=== PATIENT | male | born 1980 | race Caucasian/White ===

== ENCOUNTER 2016-11-30 12:03 | Emergency (ER) | payer MEDICAID ==
[2016-11-30] MEDS ORDERED: Sodium Chloride 0.9% 1,000 ML IV ONE (12:40)
--- NOTE | 2016-11-30 12:49 | ED Physician Chart ---
Chief Complaint/HPI - Patient Information Date Seen:: 11/30/16 Time Seen:: 12:41 Chief Complaint:: leg cramps History of Present Illness:: pt c/o severe leg cramps x >1week. cramps initially in distal rt leg then moved more proximal then moved over to rt thigh. 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 no redness. no chills. no sob. pt says pains are severe he was put on minocycline 1.5 wk ago for ??uti/ ??std ???story unclear. pt later says he has been off this med x 5 days. was given a med for pain for uti but ran out and cant recall name. denies other pain med hx recently nor other dr visits lately. took 1 of moms muscle relaxer tabs this am. (cant recall name)...no relief. also mom says he took K+ which wasnt helping. pt denies taking this initially...then changed answer and says he has been taking k+ ..... pt has a notable rash of small spots all over body which look like 1cm plaques or perhaps skin pop scars. no antecubital tracks. he says they are from freq injuries from work. Pt denies drug hx. pdmp shows large narc hx in past (ie many prior addresses) and lrg rx's x 3 last year but none for last 3 months.. Allergies:: Allergies Allergy/AdvReac Type Severity Reaction Status Date / Time banana Allergy Verified 11/30/16 12:13 sunflower seed Allergy Verified 11/30/16 12:14 beer Allergy Uncoded 11/30/16 12:12 minocycline Allergy Uncoded 11/30/16 12:22 oat Allergy Uncoded 11/30/16 12:13 Vitals:: Vital Signs - 8 hr 11/30/16 12:15 Temp 98 F HR 117 RR 20 BP 138/77 O2 Sat % 99 Historian:: Patient Review of Systems - Review of Systems General/Constitutional: No fever, No chills, No weight loss, No weakness, No diaphoresis, No edema, No loss of appetite Skin: Skin lesions, No rash, No bruising Head: No headache, No light-headedness Eyes: No loss of vision, No pain, No diplopia ENT: No earache, No nasal drainage, No sore throat, No tinnitus Neck: No neck pain, No swelling, No thyromegaly, No stiffness, No mass noted Cardio Vascular: No chest pain, No palpitations, No PND, No orthopnea, No edema Pulmonary: No SOB, No cough, No sputum, No wheezing GI: No nausea, No vomiting, No diarrhea, No pain, No melena, No hematochezia, No constipation, No hematemesis G/U: No dysuria, No frequency, No hematuria Musculoskeletal: No bone or joint pain, No back pain, Muscle pain Endocrine: No polyuria, No polydipsia Psychiatric: No prior psych history, No depression, No anxiety, No suicidal ideation Hematopoietic: No bruising, No lymphadenopathy Allergic/Immuno: No urticaria, No angioedema Neurological: No syncope, No focal symptoms, No weakness, No paresthesia, No headache, No seizure, No dizziness, No confusion, No vertigo Past Medical History - Past Medical History Past Medical History: Asthma/COPD Social History: Smoker, Alcohol, Illicit Drug Use (mj) Medication: Reviewed Family Medical History - Family Member Mother Ethnicity: Non- Living Status: Still Living Hx Family Cancer: No Hx Family Coronary Artery Disease: No Hx Family Congestive Heart Failure: No Hx Family Hypertension: No Hx Family Stroke: No Hx Family Diabetes: Yes Hx Family Seizures: No Hx Family Dementia: No Hx Family AIDS: No Hx Family HIV: No Hx Family COPD: No Hx Family Hepatitis: No Hx Family Psychiatric Problems: No Hx Family Tuberculosis: No Father History Unknown: Yes Ethnicity: Non- Living Status: Still Living Hx Family Cancer: No Hx Family Coronary Artery Disease: No Hx Family Congestive Heart Failure: No Hx Family Hypertension: No Hx Family Stroke: No Hx Family Diabetes: Yes Hx Family Seizures: No Hx Family Dementia: No Hx Family AIDS: No Hx Family HIV: No Hx Family COPD: No Hx Family Hepatitis: No Hx Family Psychiatric Problems: No Hx Family Tuberculosis: No Physical Exam - Physical Examination General/Constitutional: Awake, Well-developed, well-nourished, Alert, No distress, GCS 15, Non-toxic appearing, Ambulatory Head: Atraumatic Eyes: Lids, conjuctiva normal, PERRL, EOMI Skin: Nl inspection, No rash, No ecchymosis, Well hydrated, No lymphadenopathy Other Skin comments:: pt has a notable rash of small spots all over body which look like 1cm plaques or perhaps skin pop scars. he says they are from freq injuries from work. ENMT: External ears, nose nl, Nasal exam nl, Lips, teeth, gums nl Neck: Nontender, Full ROM w/o pain, No JVD, No nuchal rigidity, No bruit, No mass, No stridor Respiratory: Nl effort/Exclusion, Clear to Auscultation, No Wheeze/Rhonchi/Rales Cardio Vascular: RRR, No murmur, gallop, rubs, NL S1 S2 GI: No tenderness/rebounding/guarding, No organomegaly, No hernia, Normal BS's, Nondistended, No mass/bruits, No McBurney tenderness : No CVA tenderness Extremities: No tenderness or effusion, Full ROM, normal strength in all extremities, No edema, Normal digits & nails Other Extremities comments:: nrml extr. no edema. no homans sx. some diffuse mild tndrness. mild joint effusion rt knee but not red nor hot nor immobile. . no redness. no unusual warmth, no fever. Neuro/Psych: Alert/oriented, DTR's symmetric, Normal sensory exam, Normal motor strength, Judgement/insight normal, Mood normal, Normal gait, No focal deficits Misc: normal gait, Normal back, No paraspinal tenderness Labs/Radiology/EKG Results - Lab Results Results: Laboratory Tests 11/30/16 11/30/16 11/30/16 13:20 13:20 13:20 WBC RBC Hgb Hct MCV MCH MCHC Differential RDW Plt Count MPV Neutrophils % Lymphocytes % Monocytes % Eosinophils % Basophils % ESR 57 H D-Dimer Sodium Potassium Chloride Carbon Dioxide Anion Gap BUN Creatinine Est GFR ( Amer) Est GFR (Non-Af Amer) BUN/Creatinine Ratio Glucose Whole Bld Lactic Acid Uric Acid 5.0 Calcium Creatine Kinase Troponin I Urine Source Urine Color Urine Clarity Urine pH Ur Specific [place] Urine Protein Urine Glucose (UA) Urine Ketones Urine Blood Urine Nitrate Urine Bilirubin Urine Urobilinogen Ur Leukocyte Esterase Urine RBC Urine WBC Ur Epithelial Cells Urine Bacteria Urine Mucus Urine Opiates Screen Ur Barbiturates Screen Ur Phencyclidine Scrn Amphetamines Screen U Methamphetamines Scrn U Benzodiazepines Scrn U Cocaine Metab Screen U Cannabinoids Screen HIV 1&2 Antibody Screen NEGATIVE 11/30/16 11/30/16 11/30/16 13:25 13:25 13:25 WBC 13.9 H RBC 4.72 Hgb 13.1 L Hct 39.8 MCV 84.3 MCH 27.8 MCHC Differential 32.9 RDW 12.3 Plt Count 461 H MPV 7.0 Neutrophils % 68.0 Lymphocytes % 19.9 L Monocytes % 8.6 Eosinophils % 3.0 Basophils % 0.5 ESR D-Dimer > 5000 H Sodium 132 L Potassium 3.9 Chloride 97 L Carbon Dioxide 27.3 Anion Gap 11.6 BUN 17 Creatinine 1.0 Est GFR ( Amer) > 60.0 Est GFR (Non-Af Amer) > 60.0 BUN/Creatinine Ratio 17.0 Glucose 106 H Whole Bld Lactic Acid 0.85 Uric Acid Calcium 9.4 Creatine Kinase Troponin I Urine Source Urine Color Urine Clarity Urine pH Ur Specific [place] Urine Protein Urine Glucose (UA) Urine Ketones Urine Blood Urine Nitrate Urine Bilirubin Urine Urobilinogen Ur Leukocyte Esterase Urine RBC Urine WBC Ur Epithelial Cells Urine Bacteria Urine Mucus Urine Opiates Screen Ur Barbiturates Screen Ur Phencyclidine Scrn Amphetamines Screen U Methamphetamines Scrn U Benzodiazepines Scrn U Cocaine Metab Screen U Cannabinoids Screen HIV 1&2 Antibody Screen 11/30/16 11/30/16 11/30/16 13:25 13:25 14:35 WBC RBC Hgb Hct MCV MCH MCHC Differential RDW Plt Count MPV Neutrophils % Lymphocytes % Monocytes % Eosinophils % Basophils % ESR D-Dimer Sodium Potassium Chloride Carbon Dioxide Anion Gap BUN Creatinine Est GFR ( Amer) Est GFR (Non-Af Amer) BUN/Creatinine Ratio Glucose Whole Bld Lactic Acid Uric Acid Calcium Creatine Kinase 53 Troponin I 0.02 Urine Source Urine Color Urine Clarity Urine pH Ur Specific [place] Urine Protein Urine Glucose (UA) Urine Ketones Urine Blood Urine Nitrate Urine Bilirubin Urine Urobilinogen Ur Leukocyte Esterase Urine RBC Urine WBC Ur Epithelial Cells Urine Bacteria Urine Mucus Urine Opiates Screen NEGATIVE Ur Barbiturates Screen NEGATIVE Ur Phencyclidine Scrn NEGATIVE Amphetamines Screen POSITIVE H U Methamphetamines Scrn POSITIVE H U Benzodiazepines Scrn NEGATIVE U Cocaine Metab Screen NEGATIVE U Cannabinoids Screen POSITIVE H HIV 1&2 Antibody Screen 11/30/16 14:35 WBC RBC Hgb Hct MCV MCH MCHC Differential RDW Plt Count MPV Neutrophils % Lymphocytes % Monocytes % Eosinophils % Basophils % ESR D-Dimer Sodium Potassium Chloride Carbon Dioxide Anion Gap BUN Creatinine Est GFR ( Amer) Est GFR (Non-Af Amer) BUN/Creatinine Ratio Glucose Whole Bld Lactic Acid Uric Acid Calcium Creatine Kinase Troponin I Urine Source CLEAN C Urine Color YELLOW Urine Clarity CLEAR Urine pH 5.5 Ur Specific [place] 1.020 Urine Protein 0.2 Urine Glucose (UA) NEGATIVE Urine Ketones NEGATIVE Urine Blood TRACE Urine Nitrate NEGATIVE Urine Bilirubin NEGATIVE Urine Urobilinogen 0.2 Ur Leukocyte Esterase NEGATIVE Urine RBC 0-2 H Urine WBC 0-2 Ur Epithelial Cells OCCASIONAL Urine Bacteria FEW Urine Mucus MODERATE Urine Opiates Screen Ur Barbiturates Screen Ur Phencyclidine Scrn Amphetamines Screen U Methamphetamines Scrn U Benzodiazepines Scrn U Cocaine Metab Screen U Cannabinoids Screen HIV 1&2 Antibody Screen ED Septic Shock - . Is Septic Shock (SBP<90, OR Lactate>4 mmol\L) present?: No - <6hrs of presentation: Vital Signs: Vital Signs - 8 hr 11/30/16 12:15 Temp 98 F HR 117 RR 20 BP 138/77 O2 Sat % 99 Reassessment (Disposition) - Reassessment Reassessment:: . mild wbc elev noted. case dw oncdunia garvin and suggested poss admit for further eval ...D was not convinced and asked for tap of rt knee to determine type of arthritic process. Procedure prep w pt and advised pt of plan but pt became very avoidant of procedure and anxious. pt was offered pain or anxiety med but wanted only to go out and smoke cig which we informed him cant do bc he has a IV and staff too busy. Pt began questioning my plan of approach for the tap and general expertise.. pt cont to escalate w more sx and began saying his chronic pock hyl[place] were a new finding he only just noted as well. I commented that this seems difficult to believe as they look chronic ( I did not add that they appear stigmata of skin popping or chronic speed abuse for which he did test positive)...pt became offended and eloped at this time. Reassessment Condition:: Unchanged - Diagnosis Diagnosis:: 1 poly arthritis 2 noncompliant pt 3 left ama prior to completion of ED work up - Patient Disposition Discharge/Transfer:: Against Medical Advice Condition at Disposition:: Unchanged ED Discharge Plan - Patient Disposition Admit/Discharge/Transfer: AGAINST MEDICAL ADVICE Condition at Disposition: Stable
[2016-11-30 13:43] LABS: % BASOPHILS 0.5 % (0.0-2.0); % LYMPHOCYTES 19.9 % (20.0-50.0); % MONOCYTES 8.6 % (2.0-10.0); HEMATOCRIT 39.8 % (39.0-49.0); HEMOGLOBIN 13.1 gm/dL (13.2-17.3); MEAN CELL VOLUME 84.3 fl (80-99); MEAN CORPUSCULAR HEMOGLOBIN 27.8 pg (26.0-30.0); MEAN CORPUSCULAR HGB CONC 32.9 pg (28.0-36.0); NEUTROPHILE ABSOLUTE 9.4 Th/cmm (1.8-8.0); PLATELET COUNT 461 Th/cmm (150-400); RED BLOOD COUNT 4.72 Mil/cmm (4.30-5.70); RED CELL DISTRIBUTION WIDTH 12.3 % (11.5-20.0); WHITE BLOOD COUNT 13.9 Th/cmm (4.8-10.8)
[2016-11-30 13:59] LABS: ANION GAP 11.6 (7.0-16.0); BUN - UREA NITROGEN 17 mg/dL (7-25); CALCIUM SERUM 9.4 mg/dL (8.6-10.3); CARBON DIOXIDE 27.3 mEq/L (21.0-31.0); CHLORIDE 97 mEq/L (98-107); GLUCOSE 106 mg/dL (70-105); POTASSIUM SERUM 3.9 mEq/L (3.5-5.1); SODIUM SERUM 132 mEq/L (136-145)
[2016-11-30 14:57] LABS: URINE BILIRUBIN NEGATIVE (NEGATIVE); URINE BLOOD TRACE (NEGATIVE); URINE COLOR YELLOW; URINE GLUCOSE (UA) NEGATIVE (NEGATIVE); URINE KETONE NEGATIVE (NEGATIVE); URINE PH 5.5; URINE PROTEIN 0.2 mg/dL (NEGATIVE); URINE UROBILINOGEN 0.2 E.U./dL (0.2 - 1.0)
[2016-11-30 15:11] LABS: URINE BACTERIA FEW /hpf (NONE SEEN); URINE EPITHELIAL CELLS OCCASIONAL /lpf (FEW); URINE RBC 0-2 /hpf (0-5); URINE WBC 0-2 /hpf (0-5)
--- NOTE | 2016-11-30 16:10 | Diagnostic Imaging Report ---
Bilateral lower extremity Doppler venous ultrasound exam HISTORY: Pain/swelling Sonographic sector images were obtained through the deep venous systems of both legs. Associated Doppler data was obtained. The exam demonstrates patency of the common femoral, superficial femoral, popliteal, and posterior tibial veins bilaterally. Specifically, no thrombus is seen. There are normal compressibility and augmentation responses. There is an approximate 3.7 x 2.3 x 4.1 cm sonolucent focus within the soft tissues of the popliteal region of the right leg. Low-level internal echoes are noted. Findings are consistent with a popliteal/Steiner's cyst. IMPRESSION: 1. Negative exam for deep vein thrombus by this 2. Findings consistent with popliteal/Steiner's cyst within the soft tissues of the right knee.
[2016-11-30 17:01] LABS: AMPHETAMINE URINE POSITIVE (NEGATIVE); BARBITURATES URINE NEGATIVE (NEGATIVE)
== END 2016-11-30 16:34 | disposition left against medical advice (07) ==
LOC: ER 12:03
DX: D72.829 Elevated white blood cell count, unspecified (principal); J44.9 Chronic obstructive pulmonary disease, unspecified; J45.909 Unspecified asthma, uncomplicated; F17.200 Nicotine dependence, unspecified, uncomplicated; Z91.02 Food additives allergy status; Z88.8 Allergy status to other drugs, medicaments and biological substances
CPT/HCPCS: 99285; 96374; 93970; 84484; 36415; 87205; 85379; 83605; 80300; 86703; 85025; 85652; 81001; 82550; 84550; 80048; 87040 ×2; J2060; J2001; J7030